=== PATIENT | male | born 1995 | race Caucasian/White ===

== ENCOUNTER 2019-08-17 20:34 | Emergency (ER) | payer OTHER ==
[2019-08-17] MEDS ORDERED: PREDNISONE20 M1 PO (21:02)
[2019-08-17 21:16] VITALS: BP 111/72
== END 2019-08-17 21:16 | disposition home or self-care (01) ==
LOC: ED 20:34
DX: L23.7 Allergic contact dermatitis due to plants, except food (principal)
CPT/HCPCS: J2930

== ENCOUNTER → 2021-10-30 | Outpatient (CLI) | payer OTHER ==
[~2021-10-30] MED LIST: PREDNISONE20 M1 PO
== END ==
LOC: LAB 10:54
DX: B34.9 Viral infection, unspecified (principal); Z20.822 Contact with and (suspected) exposure to COVID-19

== ENCOUNTER → 2021-11-14 | Outpatient (CLI) | payer OTHER ==
[2021-11-14 17:14] LABS: BASO # 0.02 K/mm3 (0.02-0.10); EOS # 0.13 K/mm3 (0.04-0.40); EOS % 2.5 % (0.0-4.0); HEMATOCRIT 41.4 % (42.0-52.0); HEMOGLOBIN 13.6 g/dL (13.5-18.0); LYMPH# 2.08 K/mm3 (1.50-4.00); MEAN CELL VOLUME 93 fl (78-100); MEAN CORPUSCULAR HEMOGLOBIN 31 pg (27-31); MEAN CORPUSCULAR HGB CONC 33 g/dL (33-37); MEAN PLATELET VOLUME 8.9 fl (7.4-10.4); MONO # 0.42 K/mm3 (0.20-0.80); NEU # 2.55 K/mm3 (1.40-6.50); PLATELET COUNT 280 K/mm3 (130-400); RED BLOOD COUNT 4.44 M/mm3 (4.20-5.60); RED CELL DISTRIBUTION WIDTH 11.9 % (11.5-14.5); WHITE BLOOD COUNT 5.2 K/mm3 (4.8-10.8)
[2021-11-14 17:45] LABS: ALBUMIN 4.8 g/dL (3.5-5.0); POTASSIUM 3.9 mmol/L (3.5-5.1)
[2021-11-14 17:46] LABS: CALCIUM 9.8 mg/dL (8.3-10.5)
[2021-11-14 17:47] LABS: TOTAL PROTEIN 7.3 g/dL (6.4-8.3)
[2021-11-14 17:49] LABS: TOTAL BILIRUBIN 1.2 mg/dL (0.2-1.2)
[2021-11-15 20:21] LABS: TESTOSTERONE 333 ng/dL (240-871)
[2021-11-15 20:28] LABS: HEPATITIS C ANTIBODY Negative (Negative)
== END ==
LOC: LAB 16:49
PROVIDERS: Family Medicine
DX: Z00.00 Encounter for general adult medical examination without abnormal findings (principal); E78.5 Hyperlipidemia, unspecified; J30.2 Other seasonal allergic rhinitis; E66.3 Overweight; E29.1 Testicular hypofunction